=== PATIENT | female | born 1955 | race Two or more races ===

== ENCOUNTER 2021-07-22 16:05 | Emergency (ER) | payer MEDICARE, OTHER ==
[~2021-07-22] VITALS: Ht 152.4 cm; Wt 59.9 kg
--- NOTE | 2021-07-22 16:35 | NUR ---
EL FROM [facility], PER REPORT PATIENT IS REFUSING TO TAKE MEDS, ALSO TESTED COVID POSITIVE YESTERDAY, NO SYMPTOMS. PLACED ON BED, AWAKE ALERT WITH AGRESSIVE BEHAVIOR- SHOUTING AND SCREAMING AT EVERYBODY.
--- NOTE | 2021-07-22 17:10 | NUR ---
MANAGER CATEGORY. AT BED SIDE BUT PATIENT REFUSED BLOOD WORKS
--- NOTE | 2021-07-22 17:54 | NUR ---
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 AT BED SIDE PATIENT AGREES TO HAVE BLOOD WORKS
[2021-07-22] MEDS ORDERED: FLUP5TAB14 PO (18:05)
[2021-07-22] MEDS ORDERED: METO50TA16 PO (18:05)
[2021-07-22] MEDS ORDERED: LEVO137T24 PO (18:05)
[2021-07-22] MEDS ORDERED: CLON0.5T PO (18:05)
[2021-07-22] MEDS ORDERED: TOPI50TA24 PO (18:05)
[2021-07-22] MEDS ORDERED: ARIP5TAB10 PO (18:05)
[2021-07-22] MEDS ORDERED: ATOR40TA PO (18:05)
[2021-07-22] MEDS ORDERED: LATA2.5D15 EACHEYE (18:05)
[2021-07-22] MEDS ORDERED: ASPI-1169 PO (18:05)
[2021-07-22] MEDS ORDERED: DIVA-78 PO (18:05)
[2021-07-22] MEDS ORDERED: LOSA25TA27 PO (18:05)
[2021-07-22] MEDS ORDERED: OLAN10TA3 PO (18:05)
[2021-07-22 18:07] LABS: BASOPHILS % (AUTO) 0.4 % (0.0-2.0); EOSINOPHILS % (AUTO) 2.8 % (0.0-6.0); HEMATOCRIT 36 % (33-45); HEMOGLOBIN 11.7 g/dL (11.5-14.8); LYMPHOCYTES # (AUTO) 1.4 K/uL (0.8-4.8); LYMPHOCYTES % (AUTO) 27.9 % (20.0-44.0); MEAN CORPUSCULAR HGB CONC 33 g/dl (31.0-36.0); MEAN CORPUSCULAR VOLUME 88 fL (82-100); MONOCYTES % (AUTO) 20.5 % (2.0-12.0); NEUTROPHILS # (AUTO) 2.5 K/uL (1.8-8.9); NEUTROPHILS % (AUTO) 48.4 % (43.0-81.0); PLATELET COUNT (AUTO) 257 K/uL (150-450); RED BLOOD CELL COUNT(AUTO) 4.08 MIL/uL (4.0-5.2); WHITE BLOOD COUNT (AUTO) 5.1 K/uL (4.3-11.0)
--- NOTE | 2021-07-22 18:11 | NUR ---
SWAB FOR COVID19 SENT TO LAB
[2021-07-22 18:20] LABS: CARBON DIOXIDE 29 mmol/L (21-32); CHLORIDE 104 mmol/L (98-107); CREATININE 0.8 mg/dL (0.6-1.3); GLUCOSE 83 mg/dL (74-106); SODIUM SERUM 141 mmol/L (136-145); UREA NITROGEN, BLOOD 24 mg/dL (7-18)
[2021-07-22 18:26] LABS: ALANINE AMINOTRANSFERASE 22 U/L (12-78); ALBUMIN 3.2 g/dL (3.4-5.0); ALCOHOL, BLOOD < 3 mg/dL (0-0); ALKALINE PHOSPHATASE 119 U/L (46-116); ASPARTATE AMINOTRANSFERASE 18 U/L (15-37); BILIRUBIN,DIRECT 0.1 mg/dL (0.0-0.2); BILIRUBIN,TOTAL 0.2 mg/dL (0.2-1.0); TOTAL PROTEIN, SERUM 7.3 g/dL (6.4-8.2)
[2021-07-22 18:29] LABS: ACETAMINOPHEN < 2 ug/ml (10-30)
--- NOTE | 2021-07-22 18:49 | NUR ---
URINE SAMPLE SENT TO LAB
[2021-07-22 19:22] LABS: BILIRUBIN,URINE NEGATIVE (NEGATIVE); COLOR,URINE YELLOW (YELLOW); LEUKOCYTE ESTERASE ,URINE SMALL (NEGATIVE); NITRITE, URINE NEGATIVE (NEGATIVE); PROTEIN,URINE NEGATIVE (NEGATIVE); UGLUCOSE NEGATIVE (NEGATIVE); UROBILINOGEN,URINE 0.2 EU/dL (0.2)
[2021-07-22 19:33] LABS: BACTERIA,URINE 1+ /HPF (None Seen); RBC,URINE 0-2 /HPF (0-2)
[2021-07-22 19:41] LABS: EOSINOPHILS % (MANUAL) 5 % (0-4); LYMPHOCYTES % (MANUAL) 30 % (16-48); MONOCYTES % (MANUAL) 10 % (0-11.0); NEUTROPHILS % (MANUAL) 55 (42-76)
[2021-07-22] MEDS ORDERED: CEFTRIAXONE 1GM BAG (ER ONLY) 1 GM/50 ML PIGGYBACK IV ONE (20:00)
--- NOTE | 2021-07-22 20:02 | NUR ---
PT EATING DINNER IN ROOM; NO AGGITATION NOTED AT THIS TIME. SAFETY MEASURES IN PLACE
[2021-07-22] MEDS ORDERED: CEFTRIAXONE 1GM BAG (ER ONLY) 50 ML IV ONE (20:06)
[2021-07-22] MEDS ORDERED: CEPHALEXIN MONOHYDRATE 500 MG CAPSULE PO ONE ×2 (20:14→20:30)
--- NOTE | 2021-07-22 20:16 | NUR ---
PT TOOK KEFLEX PO MEDS FOR UTI; VERBALIZED UNDERSTANDING
--- NOTE | 2021-07-22 20:32 | NUR ---
[facility] CRISIS BUSINESS SERVICES COORDINATOR PAGED FOR EVAL.
[2021-07-22] MEDS ORDERED: NICARDIPINE IN DEXTROSE,ISO-OS 200 ML IV ONE (20:35)
--- NOTE | 2021-07-22 21:01 | NUR ---
[facility] CRISIS TEAM AT PT'S BEDSIDE FOR EVAL
[2021-07-22] MEDS ORDERED: FLUPHENAZINE HCL 10 MG TABLET PO SCH (21:30)
[2021-07-22] MEDS ORDERED: ARIPIPRAZOLE 5 MG TABLET PO ONE (21:30)
[2021-07-22] MEDS ORDERED: DIVALPROEX SODIUM 250 MG TABLET.DR PO ONE ×2 (21:30→21:31)
[2021-07-22] MEDS ORDERED: ARIPIPRAZOLE 2 MG TABLET ONE (21:31)
--- NOTE | 2021-07-22 22:39 | NUR ---
[employer] ETA [id number] SPOKE TO NA
--- NOTE | 2021-07-22 22:47 | NUR ---
REPORT GIVEN TO ALVARO FROM [facility] FOR PT TO BE DC
[2021-07-22] MEDS ORDERED: CEPH500C2 PO (22:49)
[2021-07-23] MEDS ORDERED: FLUPHENAZINE HCL 10 MG TABLET PO SCH
--- NOTE | 2021-07-23 00:34 | NUR ---
Report given to Alex VARGAS EMT for pt to D/C to [facility]
[2021-07-23 00:35] VITALS: BP 115/63
== END 2021-07-23 00:35 ==
LOC: ER 18:30
DX: U07.1 COVID-19 (principal); N39.0 Urinary tract infection, site not specified; R94.31 Abnormal electrocardiogram [ECG] [EKG]; F20.9 Schizophrenia, unspecified; Z79.899 Other long term (current) drug therapy; E78.5 Hyperlipidemia, unspecified; I10 Essential (primary) hypertension
CPT/HCPCS: 36415; 71045; 80048; 80076; 80143; 80307; 80320; 81001; 85007; 85025; 87086; 87426; 93005; 99285; J0696; C9803; G0480

== ENCOUNTER 2024-05-15 10:40 | Inpatient (IN) | payer MEDICARE, OTHER ==
[~2024-05-15] VITALS: Ht 154.9 cm; Wt 64.4 kg
[~2024-05-15 10:40] MED LIST: ARIP5TAB10 PO; ASPI-1169 PO; ATOR40TA PO; CEPH500C2 PO; CLON0.5T PO; DIVA-78 PO; FLUP5TAB14 PO; LATA2.5D15 EACHEYE; LEVO137T24 PO; LOSA25TA27 PO; METO50TA16 PO; OLAN10TA3 PO; TOPI50TA24 PO
[2024-05-15] MEDS ORDERED: ONDANSETRON HCL/PF 4 MG/2 ML VIAL ONE (10:58)
[2024-05-15 11:20] LABS: BASOPHILS % (AUTO) 0.2 % (0.0-2.0); EOSINOPHILS # (AUTO) 0.1 K/uL (0.0-0.7); EOSINOPHILS % (AUTO) 1.5 % (0.0-6.0); HEMATOCRIT 22 % (33-45); HEMOGLOBIN 7.1 g/dL (11.5-14.8); LYMPHOCYTES # (AUTO) 1.5 K/uL (0.8-4.8); LYMPHOCYTES % (AUTO) 15.6 % (20.0-44.0); MEAN CORPUSCULAR HEMOGLOBIN 29 PG (26.0-33.0); MEAN CORPUSCULAR HGB CONC 32 g/dl (31.0-36.0); MEAN CORPUSCULAR VOLUME 91 fL (82-100); MONOCYTES % (AUTO) 10.3 % (2.0-12.0); NEUTROPHILS % (AUTO) 72.4 % (43.0-81.0); PLATELET COUNT (AUTO) 544 K/uL (150-450); RED BLOOD CELL COUNT(AUTO) 2.44 MIL/uL (4.0-5.2); RED CELL DISTRIBUTION WIDTH 16.6 % (11.5-15.0); WHITE BLOOD COUNT (AUTO) 9.7 K/uL (4.3-11.0)
[2024-05-15] MEDS: IV NS 0.9% 1,000 ML BAG IV ONE (11:21)
[2024-05-15] MEDS: ONDANSETRON HCL/PF 4 MG/2 ML VIAL IVP ONE (11:22)
[2024-05-15] MEDS: PANTOPRAZOLE 80 MG in IV NS 0.9% 100 ML IV ONE (11:24)
[2024-05-15 11:32] LABS: CALCIUM, SERUM 9.7 mg/dL (8.5-10.1); CREATININE 0.9 mg/dL (0.6-1.3)
[2024-05-15 11:34] LABS: INR 1.03 (0.91-1.10); PARTIAL THROMBOPLASTIN TIME 22.3 SEC (24.3-34.3); PROTHROMBIN TIME 10.9 SECS (9.2-11.1)
[2024-05-15 11:38] LABS: ALBUMIN 2.3 g/dL (3.4-5.0); BILIRUBIN,DIRECT 0.1 mg/dL (0.0-0.2); BILIRUBIN,TOTAL 0.3 mg/dL (0.2-1.0); TOTAL PROTEIN, SERUM 6.9 g/dL (6.4-8.2)
[2024-05-15] MEDS ORDERED: L. A1TAB10 PO (12:38)
[2024-05-15] MEDS ORDERED: MAGN200T5 PO (12:38)
[2024-05-15] MEDS ORDERED: AMIN30LI66 PO (12:38)
[2024-05-15] MEDS ORDERED: CRAN3875 PO (12:38)
[2024-05-15] MEDS ORDERED: CRAN400C PO (12:38)
[2024-05-15] MEDS ORDERED: ARIP10TA9 PO (12:38)
[2024-05-15] MEDS ORDERED: DICL100G34 TP (12:38)
[2024-05-15] MEDS ORDERED: MELO-105 PO (12:38)
[2024-05-15] MEDS ORDERED: DIVA-76 PO (12:38)
[2024-05-15 16:30] VITALS: BP 95/56; TEMP 97.9; O2SAT 99
[2024-05-15] MEDS ORDERED: MAGNESIUM HYDROXIDE 30 ML UDC PO PRN (16:30)
[2024-05-15] MEDS ORDERED: ONDANSETRON HCL/PF 4 MG/2 ML VIAL IVP PRN (16:30)
[2024-05-15] MEDS ORDERED: Z GUARD REMEDY 4 OZ OINT TP PRN (16:30)
[2024-05-15] MEDS: DIVALPROEX SODIUM 250 MG TABLET.DR PO SCH (18:27)
[2024-05-15] MEDS: IV NS 0.9% 1,000 ML IV PRN (19:01)
[2024-05-15 20:13] VITALS: BP 92/50; TEMP 97.3; O2SAT 99
[2024-05-15] MEDS: PANTOPRAZOLE 40 MG VIAL IV SCH (21:12)
[2024-05-16] VITALS (15 sets, daily range): BP systolic 90–119; BP diastolic 43–67; TEMP 96.8–98; O2SAT 99–100
[2024-05-16] MEDS: MAG HYDROX/AL HYDROX/SIMETH 30 ML UDC PO PRN (02:48)
[2024-05-16 06:42] LABS: BASOPHILS % (AUTO) 0.2 % (0.0-2.0); EOSINOPHILS # (AUTO) 0.1 K/uL (0.0-0.7); EOSINOPHILS % (AUTO) 1.6 % (0.0-6.0); LYMPHOCYTES # (AUTO) 1.6 K/uL (0.8-4.8); LYMPHOCYTES % (AUTO) 32.3 % (20.0-44.0); MEAN CORPUSCULAR HEMOGLOBIN 30 PG (26.0-33.0); MEAN CORPUSCULAR HGB CONC 33 g/dl (31.0-36.0); MEAN CORPUSCULAR VOLUME 91 fL (82-100); MONOCYTES # (AUTO) 0.6 K/uL (0.1-1.30); MONOCYTES % (AUTO) 11.1 % (2.0-12.0); NEUTROPHILS # (AUTO) 2.8 K/uL (1.8-8.9); NEUTROPHILS % (AUTO) 54.8 % (43.0-81.0); PLATELET COUNT (AUTO) 459 K/uL (150-450); RED CELL DISTRIBUTION WIDTH 16.7 % (11.5-15.0); WHITE BLOOD COUNT (AUTO) 5.1 K/uL (4.3-11.0)
[2024-05-16 07:01] LABS: OCCULT BLOOD STOOL NEGATIVE (NEGATIVE)
[2024-05-16 07:04] LABS: CALCIUM, SERUM 8.6 mg/dL (8.5-10.1); CREATININE 0.7 mg/dL (0.6-1.3); PHOSPHORUS 2.7 mg/dL (2.5-4.9); POTASSIUM 4.1 mmol/L (3.5-5.1)
[2024-05-16 07:43] LABS: RED BLOOD CELL COUNT(AUTO) 1.84 MIL/uL (4.0-5.2)
[2024-05-16 07:45] LABS: HEMATOCRIT 17 % (33-45); HEMOGLOBIN 5.5 g/dL (11.5-14.8)
[2024-05-16] MEDS: ARIPIPRAZOLE 5 MG TABLET PO SCH (08:47)
[2024-05-16] MEDS: ACETAMINOPHEN 325 MG TABLET PO PRN (10:04)
[2024-05-16 11:20] LABS: ANISOCYTOSIS 1+; EOSINOPHILS % (MANUAL) 1 % (0-4); HYPOCHROMASIA 1+; LYMPHOCYTES % (MANUAL) 33 % (16-48); MONOCYTES % (MANUAL) 1 % (0-11.0); NEUTROPHILS % (MANUAL) 65 (42-76); PLATELET ESTIMATE INCREASED; STOMATOCYTES 1+
[2024-05-16 16:53] LABS: HEMATOCRIT 23 % (33-45); HEMOGLOBIN 7.5 g/dL (11.5-14.8); MEAN CORPUSCULAR HEMOGLOBIN 28 PG (26.0-33.0); MEAN CORPUSCULAR HGB CONC 32 g/dl (31.0-36.0); MEAN CORPUSCULAR VOLUME 87 fL (82-100); PLATELET COUNT (AUTO) 449 K/uL (150-450); RED BLOOD CELL COUNT(AUTO) 2.69 MIL/uL (4.0-5.2); RED CELL DISTRIBUTION WIDTH 19.7 % (11.5-15.0); WHITE BLOOD COUNT (AUTO) 5.8 K/uL (4.3-11.0)
[2024-05-16 23:35] LABS: HEMATOCRIT 27 % (33-45); HEMOGLOBIN 9.1 g/dL (11.5-14.8); MEAN CORPUSCULAR HEMOGLOBIN 30 PG (26.0-33.0); MEAN CORPUSCULAR HGB CONC 33 g/dl (31.0-36.0); MEAN CORPUSCULAR VOLUME 89 fL (82-100); PLATELET COUNT (AUTO) 453 K/uL (150-450); RED BLOOD CELL COUNT(AUTO) 3.07 MIL/uL (4.0-5.2); RED CELL DISTRIBUTION WIDTH 19.1 % (11.5-15.0); WHITE BLOOD COUNT (AUTO) 6.8 K/uL (4.3-11.0)
[2024-05-17] VITALS (8 sets, daily range): BP systolic 100–125; BP diastolic 51–86; TEMP 97.3–97.5; O2SAT 97–100
[2024-05-17 06:58] LABS: BASOPHILS % (AUTO) 0.3 % (0.0-2.0); EOSINOPHILS # (AUTO) 0.1 K/uL (0.0-0.7); EOSINOPHILS % (AUTO) 1.5 % (0.0-6.0); HEMATOCRIT 27 % (33-45); HEMOGLOBIN 8.8 g/dL (11.5-14.8); LYMPHOCYTES # (AUTO) 2.1 K/uL (0.8-4.8); LYMPHOCYTES % (AUTO) 33.5 % (20.0-44.0); MEAN CORPUSCULAR HEMOGLOBIN 29 PG (26.0-33.0); MEAN CORPUSCULAR HGB CONC 33 g/dl (31.0-36.0); MEAN CORPUSCULAR VOLUME 88 fL (82-100); MONOCYTES # (AUTO) 0.6 K/uL (0.1-1.30); MONOCYTES % (AUTO) 9.5 % (2.0-12.0); NEUTROPHILS # (AUTO) 3.4 K/uL (1.8-8.9); NEUTROPHILS % (AUTO) 55.2 % (43.0-81.0); PLATELET COUNT (AUTO) 467 K/uL (150-450); RED BLOOD CELL COUNT(AUTO) 3.02 MIL/uL (4.0-5.2); WHITE BLOOD COUNT (AUTO) 6.2 K/uL (4.3-11.0)
[2024-05-17 07:21] LABS: CALCIUM, SERUM 8.9 mg/dL (8.5-10.1); CREATININE 0.6 mg/dL (0.6-1.3); POTASSIUM 4.8 mmol/L (3.5-5.1)
[2024-05-17] MEDS: IV D5/ 0.9% NACL 1,000 ML IV PRN (11:32)
[2024-05-17 18:32] LABS: BASOPHILS % (AUTO) 0.3 % (0.0-2.0); EOSINOPHILS # (AUTO) 0.1 K/uL (0.0-0.7); EOSINOPHILS % (AUTO) 1.1 % (0.0-6.0); HEMATOCRIT 25 % (33-45); HEMOGLOBIN 8.4 g/dL (11.5-14.8); LYMPHOCYTES # (AUTO) 1.8 K/uL (0.8-4.8); LYMPHOCYTES % (AUTO) 25.7 % (20.0-44.0); MEAN CORPUSCULAR HEMOGLOBIN 31 PG (26.0-33.0); MEAN CORPUSCULAR HGB CONC 34 g/dl (31.0-36.0); MEAN CORPUSCULAR VOLUME 90 fL (82-100); MONOCYTES # (AUTO) 0.7 K/uL (0.1-1.30); MONOCYTES % (AUTO) 10.4 % (2.0-12.0); NEUTROPHILS # (AUTO) 4.4 K/uL (1.8-8.9); NEUTROPHILS % (AUTO) 62.5 % (43.0-81.0); PLATELET COUNT (AUTO) 531 K/uL (150-450); RED BLOOD CELL COUNT(AUTO) 2.73 MIL/uL (4.0-5.2); RED CELL DISTRIBUTION WIDTH 19.3 % (11.5-15.0)
[2024-05-18 04:00] VITALS: BP 124/60; TEMP 97.9; O2SAT 97
[2024-05-18 08:00] VITALS: BP 113/79; TEMP 97.7; O2SAT 98
[2024-05-18 12:49] LABS: BASOPHILS % (AUTO) 0.1 % (0.0-2.0); EOSINOPHILS % (AUTO) 0.3 % (0.0-6.0); HEMATOCRIT 22 % (33-45); HEMOGLOBIN 7.4 g/dL (11.5-14.8); LYMPHOCYTES % (AUTO) 20.2 % (20.0-44.0); MEAN CORPUSCULAR HEMOGLOBIN 29 PG (26.0-33.0); MEAN CORPUSCULAR HGB CONC 33 g/dl (31.0-36.0); MEAN CORPUSCULAR VOLUME 89 fL (82-100); MONOCYTES % (AUTO) 9.7 % (2.0-12.0); NEUTROPHILS % (AUTO) 69.7 % (43.0-81.0); PLATELET COUNT (AUTO) 576 K/uL (150-450); RED BLOOD CELL COUNT(AUTO) 2.51 MIL/uL (4.0-5.2); RED CELL DISTRIBUTION WIDTH 19.3 % (11.5-15.0); WHITE BLOOD COUNT (AUTO) 10.1 K/uL (4.3-11.0)
[2024-05-18 12:54] LABS: CALCIUM, SERUM 8.8 mg/dL (8.5-10.1); CREATININE 0.9 mg/dL (0.6-1.3); POTASSIUM 3.4 mmol/L (3.5-5.1)
[2024-05-18 13:04] LABS: INR 1.26 (0.91-1.10); PROTHROMBIN TIME 13.2 SECS (9.2-11.1)
[2024-05-18] MEDS ORDERED: ANESTHESIA TRAY IN PYXIS 1 EA TRAY MC ONE (13:36)
[2024-05-18] MEDS ORDERED: EPINEPHRINE (1:10,000) SYRINGE 1 MG/10 ML DISP.SYRIN IVP ONE (15:49)
[2024-05-18 16:00] VITALS: BP 99/52; TEMP 97.9; O2SAT 95
[2024-05-18 16:15] VITALS: BP 119/71; TEMP 98.2
[2024-05-18 18:00] VITALS: BP 121/79; TEMP 97.9
[2024-05-18 20:00] VITALS: BP 122/73; TEMP 98.6; O2SAT 98
[2024-05-19] VITALS: BP 127/59; TEMP 98.6; O2SAT 97
[2024-05-19 04:00] VITALS: BP 116/63; TEMP 98.1; O2SAT 97
[2024-05-19 06:55] LABS: CALCIUM, SERUM 8.4 mg/dL (8.5-10.1); CREATININE 0.7 mg/dL (0.6-1.3)
[2024-05-19 07:13] LABS: BASOPHILS % (AUTO) 0.3 % (0.0-2.0); HEMATOCRIT 26 % (33-45); HEMOGLOBIN 8.6 g/dL (11.5-14.8); LYMPHOCYTES % (AUTO) 20.9 % (20.0-44.0); MEAN CORPUSCULAR HEMOGLOBIN 30 PG (26.0-33.0); MEAN CORPUSCULAR HGB CONC 34 g/dl (31.0-36.0); MEAN CORPUSCULAR VOLUME 88 fL (82-100); MONOCYTES # (AUTO) 1.3 K/uL (0.1-1.30); NEUTROPHILS # (AUTO) 6.1 K/uL (1.8-8.9); NEUTROPHILS % (AUTO) 64.8 % (43.0-81.0); PLATELET COUNT (AUTO) 500 K/uL (150-450); RED CELL DISTRIBUTION WIDTH 17.2 % (11.5-15.0); WHITE BLOOD COUNT (AUTO) 9.5 K/uL (4.3-11.0)
[2024-05-19 08:10] VITALS: BP 133/69; TEMP 98.6; O2SAT 97
[2024-05-19] MEDS: POTASSIUM CHLORIDE 20 MEQ TAB.PRT.SR PO SCH (10:47)
[2024-05-19] MEDS: IV 1/2NS 1000 ML 1,000 ML IV PRN (11:36)
[2024-05-19 16:05] VITALS: BP 129/66; TEMP 98.6; O2SAT 99
[2024-05-19 20:00] VITALS: BP 95/59; TEMP 98.4; O2SAT 99
[2024-05-20 04:00] VITALS: BP 144/74; TEMP 98.6; O2SAT 100
[2024-05-20] MEDS: PANTOPRAZOLE 40 MG TABLET.DR PO SCH (09:45)
[2024-05-20 12:13] VITALS: BP 145/58; TEMP 98.5; O2SAT 99
[2024-05-20 15:18] LABS: BASOPHILS % (AUTO) 0.4 % (0.0-2.0); EOSINOPHILS % (AUTO) 0.3 % (0.0-6.0); HEMATOCRIT 25 % (33-45); HEMOGLOBIN 8.2 g/dL (11.5-14.8); LYMPHOCYTES # (AUTO) 2.4 K/uL (0.8-4.8); LYMPHOCYTES % (AUTO) 20.7 % (20.0-44.0); MEAN CORPUSCULAR HEMOGLOBIN 29 PG (26.0-33.0); MEAN CORPUSCULAR HGB CONC 33 g/dl (31.0-36.0); MEAN CORPUSCULAR VOLUME 89 fL (82-100); MONOCYTES # (AUTO) 1.7 K/uL (0.1-1.30); MONOCYTES % (AUTO) 14.5 % (2.0-12.0); NEUTROPHILS # (AUTO) 7.5 K/uL (1.8-8.9); NEUTROPHILS % (AUTO) 64.1 % (43.0-81.0); PLATELET COUNT (AUTO) 436 K/uL (150-450); RED BLOOD CELL COUNT(AUTO) 2.82 MIL/uL (4.0-5.2); RED CELL DISTRIBUTION WIDTH 18.1 % (11.5-15.0); WHITE BLOOD COUNT (AUTO) 11.7 K/uL (4.3-11.0)
[2024-05-20] MEDS: clonazePAM 0.5 MG TABLET PO PRN (15:24)
[2024-05-20 15:27] LABS: BILIRUBIN,TOTAL 0.3 mg/dL (0.2-1.0); CALCIUM, SERUM 8.4 mg/dL (8.5-10.1); CREATININE 0.7 mg/dL (0.6-1.3); POTASSIUM 3.2 mmol/L (3.5-5.1); TOTAL PROTEIN, SERUM 5.7 g/dL (6.4-8.2)
[2024-05-20 16:59] VITALS: BP 127/71; TEMP 98
[2024-05-20 20:00] VITALS: BP 128/75; TEMP 98.4; O2SAT 95
[2024-05-21 04:00] VITALS: BP 127/71; TEMP 99; O2SAT 98
[2024-05-21 07:02] LABS: BASOPHILS % (AUTO) 0.3 % (0.0-2.0); EOSINOPHILS % (AUTO) 0.6 % (0.0-6.0); HEMATOCRIT 22 % (33-45); HEMOGLOBIN 7.5 g/dL (11.5-14.8); LYMPHOCYTES # (AUTO) 1.7 K/uL (0.8-4.8); LYMPHOCYTES % (AUTO) 23.3 % (20.0-44.0); MEAN CORPUSCULAR HEMOGLOBIN 30 PG (26.0-33.0); MEAN CORPUSCULAR HGB CONC 34 g/dl (31.0-36.0); MEAN CORPUSCULAR VOLUME 88 fL (82-100); MONOCYTES # (AUTO) 1.2 K/uL (0.1-1.30); MONOCYTES % (AUTO) 15.8 % (2.0-12.0); NEUTROPHILS # (AUTO) 4.4 K/uL (1.8-8.9); PLATELET COUNT (AUTO) 427 K/uL (150-450); RED BLOOD CELL COUNT(AUTO) 2.51 MIL/uL (4.0-5.2); RED CELL DISTRIBUTION WIDTH 17.9 % (11.5-15.0); WHITE BLOOD COUNT (AUTO) 7.4 K/uL (4.3-11.0)
[2024-05-21 07:36] LABS: CREATININE 0.6 mg/dL (0.6-1.3); MAGNESIUM 1.6 mg/dL (1.8-2.4); PHOSPHORUS 3.4 mg/dL (2.5-4.9)
[2024-05-21] MEDS ORDERED: PANT40TA49 PO (10:25)
[2024-05-21 10:53] VITALS: BP 140/70; TEMP 98.2; O2SAT 99
[2024-05-21] MEDS: MAGNESIUM OXIDE 400 MG TABLET PO ONE (11:00)
[2024-05-21 11:01] LABS: POTASSIUM 2.7 mmol/L (3.5-5.1)
[2024-05-21 11:39] LABS: LYMPHOCYTES % (MANUAL) 21 % (16-48); MONOCYTES % (MANUAL) 6 % (0-11.0); NEUTROPHILS % (MANUAL) 73 (42-76)
[2024-05-21 11:40] LABS: ANISOCYTOSIS 1+; HYPOCHROMASIA 1+; PLATELET ESTIMATE ADEQUATE
[2024-05-21] MEDS: POTASSIUM CHLORIDE 20 MEQ TAB.PRT.SR PO ONE (13:35)
[2024-05-21] MEDS: POTASSIUM CHLORIDE 20 MEQ TAB.PRT.SR PO SCH (13:36)
[2024-05-21] MEDS ORDERED: POTASSIUM CHLORIDE 20 MEQ TAB.PRT.SR PO ONE (15:00)
[2024-05-21 16:26] VITALS: BP 139/74; TEMP 98.1
[2024-05-21] MEDS ORDERED: POTASSIUM CHLORIDE 20 MEQ TAB.PRT.SR PO SCH (18:00)
== END 2024-05-21 18:52 | DRG 378 ==
LOC: ER 10:48 → TELE1 15:06 → MEDSG1 16:18 → TELE1 05-18 12:18 → MEDSG1 05-19 09:42
PROVIDERS: ADMIT Internal Medicine; ATTEND Internal Medicine
PROC: 30233N1 Transfusion of Nonautologous Red Blood Cells into Peripheral Vein, Percutaneous Approach (ICD-10-PCS; 2024-05-16)
PROC: 0DJ08ZZ Inspection of Upper Intestinal Tract, Via Natural or Artificial Opening Endoscopic (ICD-10-PCS; principal; 2024-05-17 10:00)
PROC: 0W3P8ZZ Control Bleeding in Gastrointestinal Tract, Via Natural or Artificial Opening Endoscopic (ICD-10-PCS; 2024-05-18)
DX: K26.4 Chronic or unspecified duodenal ulcer with hemorrhage (principal); D62 Acute posthemorrhagic anemia; E87.0 Hyperosmolality and hypernatremia; D64.9 Anemia, unspecified; I10 Essential (primary) hypertension; F20.9 Schizophrenia, unspecified; K29.70 Gastritis, unspecified, without bleeding; K29.80 Duodenitis without bleeding; E78.5 Hyperlipidemia, unspecified; Z88.8 Allergy status to other drugs, medicaments and biological substances; Z79.899 Other long term (current) drug therapy; F32.9 Major depressive disorder, single episode, unspecified; Z86.59 Personal history of other mental and behavioral disorders; K80.20 Calculus of gallbladder without cholecystitis without obstruction; N20.0 Calculus of kidney
CPT/HCPCS: 36415; 71045-TC; 80048-TC; 80053-TC; 80076-TC; 82272-TC; 82962-TC; 83735-TC; 84100-TC; 85025-TC; 85027-TC; 85610-TC; 85730-TC; 86850-TC; 97110-TC; 97530-TC; A4223; G0378; J0171; J0461; J2405; J2470; J2704; J3490; J7030; J7042; J7050; P9016

== ENCOUNTER 2024-05-24 04:03 | Inpatient (IN) | payer MEDICARE, OTHER ==
[~2024-05-24] VITALS: Ht 152.4 cm; Wt 59.9 kg
[~2024-05-24 04:03] MED LIST changes: +AMIN30LI66 PO; +ARIP10TA9 PO; -ASPI-1169 PO; -ATOR40TA PO; -CEPH500C2 PO; +CRAN3875 PO; +CRAN400C PO; +DICL100G34 TP; +DIVA-76 PO; -DIVA-78 PO; -FLUP5TAB14 PO; +L. A1TAB10 PO; -LATA2.5D15 EACHEYE; -LEVO137T24 PO; -LOSA25TA27 PO; +MAGN200T5 PO; -METO50TA16 PO; -OLAN10TA3 PO; +PANT40TA49 PO; -TOPI50TA24 PO
[2024-05-24] MEDS ORDERED: POTASSIUM CHLORIDE 10 MEQ/50 ML PREMIXED IVPB FOR PERIPHERAL LINE IV ONE (04:16)
[2024-05-24 04:56] LABS: BASOPHILS % (AUTO) 0.1 % (0.0-2.0); HEMATOCRIT 22 % (33-45); HEMOGLOBIN 7.2 g/dL (11.5-14.8); LYMPHOCYTES # (AUTO) 1.2 K/uL (0.8-4.8); LYMPHOCYTES % (AUTO) 7.9 % (20.0-44.0); MEAN CORPUSCULAR HEMOGLOBIN 28 PG (26.0-33.0); MEAN CORPUSCULAR HGB CONC 33 g/dl (31.0-36.0); MEAN CORPUSCULAR VOLUME 87 fL (82-100); MONOCYTES % (AUTO) 6.3 % (2.0-12.0); NEUTROPHILS # (AUTO) 13.5 K/uL (1.8-8.9); NEUTROPHILS % (AUTO) 85.7 % (43.0-81.0); PLATELET COUNT (AUTO) 422 K/uL (150-450); RED BLOOD CELL COUNT(AUTO) 2.55 MIL/uL (4.0-5.2); WHITE BLOOD COUNT (AUTO) 15.7 K/uL (4.3-11.0)
[2024-05-24 05:10] LABS: ALBUMIN 1.5 g/dL (3.4-5.0); BILIRUBIN,DIRECT 0.1 mg/dL (0.0-0.2); BILIRUBIN,TOTAL 0.4 mg/dL (0.2-1.0); CALCIUM, SERUM 8.2 mg/dL (8.5-10.1); CREATININE 0.6 mg/dL (0.6-1.3); TOTAL PROTEIN, SERUM 5.3 g/dL (6.4-8.2)
[2024-05-24 05:11] LABS: POTASSIUM 2.5 mmol/L (3.5-5.1)
[2024-05-24] MEDS: POTASSIUM CHLORIDE 10 MEQ/50 ML PREMIXED IVPB FOR PERIPHERAL LINE IV ONE (05:30)
[2024-05-24] MEDS ORDERED: POTASSIUM CL. PREMIX PERIPHER. 50 ML ONE ×3 (05:35→08:30)
[2024-05-24 05:53] LABS: APPEARANCE,URINE SLIGHTLY CLOUDY (CLEAR); BILIRUBIN,URINE NEGATIVE (NEGATIVE); BLOOD, URINE 1+ Ery/uL (NEGATIVE); COLOR,URINE YELLOW (YELLOW); KETONES,URINE NEGATIVE (NEGATIVE); LEUKOCYTE ESTERASE ,URINE 3+ (NEGATIVE); NITRITE, URINE POSITIVE (NEGATIVE); PROTEIN,URINE NEGATIVE (NEGATIVE); UGLUCOSE NEGATIVE (NEGATIVE); UROBILINOGEN,URINE 0.2 EU/dL (0.2)
[2024-05-24] MEDS: CEFTRIAXONE 1GM BAG (ER ONLY) 50 ML IV ONE (06:35)
[2024-05-24] MEDS ORDERED: CEFTRIAXONE 1GM BAG (ER ONLY) 50 ML IV ONE (06:35)
[2024-05-24] MEDS ORDERED: ZINC454O5 TP (07:55)
[2024-05-24] MEDS ORDERED: MAGN400O6 PO (07:55)
[2024-05-24] MEDS ORDERED: MELO-105 PO (07:55)
[2024-05-24] MEDS ORDERED: PANT40TA2 PO (07:55)
[2024-05-24] MEDS ORDERED: NA P133E RC (07:55)
[2024-05-24] MEDS ORDERED: ACET-868 PO (07:55)
[2024-05-24] MEDS ORDERED: MAG-5 PO (07:55)
[2024-05-24] MEDS ORDERED: BISA10SU11 RC (07:55)
[2024-05-24 08:05] LABS: ADD URINE CULTURE YES; BACTERIA,URINE Many /HPF (None Seen); WBC,URINE 21-50 /HPF (0-3)
[2024-05-24 08:38] LABS: INR 1.76 (0.91-1.10); PARTIAL THROMBOPLASTIN TIME 44.7 SEC (24.3-34.3)
[2024-05-24] MEDS: POTASSIUM CL. PREMIX PERIPHER. 50 ML IV SCH (09:53)
[2024-05-24 11:00] VITALS: BP 115/63; TEMP 97.9; O2SAT 97
[2024-05-24] MEDS: ENOXAPARIN SODIUM 40 MG/0.4 ML DISP.SYRIN SQ SCH (12:00)
[2024-05-24] MEDS ORDERED: MAG HYDROX/AL HYDROX/SIMETH 30 ML UDC PO PRN ×2 (12:00→16:00)
[2024-05-24] MEDS ORDERED: MAGNESIUM HYDROXIDE 30 ML UDC PO PRN ×2 (12:00→16:00)
[2024-05-24] MEDS: IV 1/2NS 1000 ML 1,000 ML IV PRN (14:25)
[2024-05-24 16:00] VITALS: BP 146/79; TEMP 98.1; O2SAT 98
[2024-05-24] MEDS ORDERED: BISACODYL SUPP (10 MG) 10 MG/SUPP.RECT SUPP.RECT RC PRN (16:00)
[2024-05-24] MEDS ORDERED: ACETAMINOPHEN 325 MG TABLET PO PRN (16:00)
[2024-05-24] MEDS: PANTOPRAZOLE 40 MG TABLET.DR PO SCH (17:37)
[2024-05-24] MEDS: DIVALPROEX SODIUM 250 MG TABLET.DR PO SCH (17:37)
[2024-05-24] MEDS: ENSURE ENLIVE 237 ML LIQUID (VANILLA) PO SCH (18:14)
[2024-05-24 20:00] VITALS: BP 110/55; TEMP 98.2; O2SAT 96
[2024-05-24] MEDS: ARIPIPRAZOLE 5 MG TABLET PO SCH (21:34)
[2024-05-25] VITALS: BP 115/66; TEMP 98.6; O2SAT 95
[2024-05-25 04:00] VITALS: BP 122/65; TEMP 98.6; O2SAT 95
[2024-05-25] MEDS: CEFTRIAXONE 1 G in IV D5W 50 ML IV SCH (05:52)
[2024-05-25 07:26] VITALS: BP 122/65; TEMP 98.6; O2SAT 95
[2024-05-25] MEDS ORDERED: PANTOPRAZOLE 40 MG TABLET.DR PO SCH (07:30)
[2024-05-25] MEDS ORDERED: Medication Not On Formulary EA (Cranberry 450 MG) PO SCH (09:00)
[2024-05-25] MEDS: PROSOURCE / PROSTAT (PYXIS) 30 ML UDC PO SCH (09:10)
[2024-05-25] MEDS: ARIPIPRAZOLE 5 MG TABLET PO SCH (09:17)
[2024-05-25] MEDS: ZINC OXIDE 56.7 GM TUBE TP SCH (09:18)
[2024-05-25] MEDS: ACIDOPHILUS/BULGARICUS 1 EACH TAB.CHEW PO SCH (09:18)
[2024-05-25] MEDS: Z GUARD REMEDY 4 OZ OINT TP PRN (09:18)
[2024-05-25] MEDS: ONDANSETRON HCL/PF 4 MG/2 ML VIAL IVP PRN (09:19)
[2024-05-25] MEDS: FIXODENT DENTURE ADHESIVE CREAM TUBE MM PRN (13:45)
[2024-05-25] MEDS: clonazePAM 0.5 MG TABLET PO PRN (14:19)
[2024-05-25 16:00] VITALS: BP 107/54; TEMP 98.1; O2SAT 94
[2024-05-25 20:00] VITALS: BP 113/75; TEMP 97.8; O2SAT 95
[2024-05-25] MEDS: ZOLPIDEM TARTRATE 5 MG TABLET PO PRN (21:38)
[2024-05-26] MEDS: ACETAMINOPHEN 325 MG TABLET PO PRN (02:21)
[2024-05-26 11:33] LABS: BASOPHILS % (AUTO) 0.1 % (0.0-2.0); EOSINOPHILS % (AUTO) 0.3 % (0.0-6.0); HEMATOCRIT 22 % (33-45); HEMOGLOBIN 7.1 g/dL (11.5-14.8); LYMPHOCYTES # (AUTO) 1.8 K/uL (0.8-4.8); LYMPHOCYTES % (AUTO) 13.8 % (20.0-44.0); MEAN CORPUSCULAR HEMOGLOBIN 29 PG (26.0-33.0); MEAN CORPUSCULAR HGB CONC 33 g/dl (31.0-36.0); MEAN CORPUSCULAR VOLUME 88 fL (82-100); MONOCYTES # (AUTO) 1.2 K/uL (0.1-1.30); MONOCYTES % (AUTO) 9.4 % (2.0-12.0); NEUTROPHILS # (AUTO) 9.7 K/uL (1.8-8.9); NEUTROPHILS % (AUTO) 76.4 % (43.0-81.0); PLATELET COUNT (AUTO) 507 K/uL (150-450); RED BLOOD CELL COUNT(AUTO) 2.46 MIL/uL (4.0-5.2); RED CELL DISTRIBUTION WIDTH 18.3 % (11.5-15.0); WHITE BLOOD COUNT (AUTO) 12.7 K/uL (4.3-11.0)
[2024-05-26 11:52] LABS: CALCIUM, SERUM 8.4 mg/dL (8.5-10.1); CREATININE 0.7 mg/dL (0.6-1.3); PHOSPHORUS 1.3 mg/dL (2.5-4.9); POTASSIUM 3.4 mmol/L (3.5-5.1)
[2024-05-26] MEDS: POTASSIUM CHLORIDE 20 MEQ TAB.PRT.SR PO SCH (14:15)
[2024-05-26 20:00] VITALS: BP 139/66; TEMP 98.2; O2SAT 95
[2024-05-27] VITALS (7 sets, daily range): BP systolic 118–145; BP diastolic 70–93; TEMP 97.7–98.6; O2SAT 96–98
[2024-05-27 07:11] LABS: CREATININE 0.6 mg/dL (0.6-1.3); PHOSPHORUS 1.9 mg/dL (2.5-4.9); POTASSIUM 3.7 mmol/L (3.5-5.1)
[2024-05-27 07:14] LABS: BASOPHILS % (AUTO) 0.1 % (0.0-2.0); EOSINOPHILS # (AUTO) 0.1 K/uL (0.0-0.7); EOSINOPHILS % (AUTO) 0.3 % (0.0-6.0); HEMATOCRIT 22 % (33-45); LYMPHOCYTES # (AUTO) 2.3 K/uL (0.8-4.8); LYMPHOCYTES % (AUTO) 12.7 % (20.0-44.0); MEAN CORPUSCULAR HEMOGLOBIN 28 PG (26.0-33.0); MEAN CORPUSCULAR HGB CONC 32 g/dl (31.0-36.0); MEAN CORPUSCULAR VOLUME 88 fL (82-100); MONOCYTES # (AUTO) 2.1 K/uL (0.1-1.30); MONOCYTES % (AUTO) 11.7 % (2.0-12.0); NEUTROPHILS # (AUTO) 13.3 K/uL (1.8-8.9); NEUTROPHILS % (AUTO) 75.2 % (43.0-81.0); PLATELET COUNT (AUTO) 546 K/uL (150-450); RED BLOOD CELL COUNT(AUTO) 2.51 MIL/uL (4.0-5.2); RED CELL DISTRIBUTION WIDTH 17.9 % (11.5-15.0); WHITE BLOOD COUNT (AUTO) 17.7 K/uL (4.3-11.0)
[2024-05-27 10:50] LABS: ANISOCYTOSIS 1+; LYMPHOCYTES % (MANUAL) 10 % (16-48); MONOCYTES % (MANUAL) 6 % (0-11.0); NEUTROPHILS % (MANUAL) 84 (42-76); PLATELET ESTIMATE INCREASED
[2024-05-27] MEDS: K PHOS NEUTRAL 250 MG TABLET PO ONE (16:26)
[2024-05-28] VITALS (14 sets, daily range): BP systolic 116–155; BP diastolic 70–91; TEMP 97.3–98.8; O2SAT 96–97
[2024-05-28 07:35] LABS: CREATININE 0.6 mg/dL (0.6-1.3); POTASSIUM 3.8 mmol/L (3.5-5.1)
[2024-05-28 07:42] LABS: MAGNESIUM 2.1 mg/dL (1.8-2.4); PHOSPHORUS 2.3 mg/dL (2.5-4.9)
[2024-05-28 08:22] LABS: BASOPHILS % (AUTO) 0.2 % (0.0-2.0); EOSINOPHILS # (AUTO) 0.1 K/uL (0.0-0.7); EOSINOPHILS % (AUTO) 0.5 % (0.0-6.0); HEMATOCRIT 21 % (33-45); LYMPHOCYTES # (AUTO) 2.1 K/uL (0.8-4.8); LYMPHOCYTES % (AUTO) 12.8 % (20.0-44.0); MEAN CORPUSCULAR HEMOGLOBIN 30 PG (26.0-33.0); MEAN CORPUSCULAR HGB CONC 33 g/dl (31.0-36.0); MEAN CORPUSCULAR VOLUME 89 fL (82-100); MONOCYTES # (AUTO) 2.3 K/uL (0.1-1.30); MONOCYTES % (AUTO) 14.1 % (2.0-12.0); NEUTROPHILS # (AUTO) 11.6 K/uL (1.8-8.9); NEUTROPHILS % (AUTO) 72.4 % (43.0-81.0); PLATELET COUNT (AUTO) 573 K/uL (150-450); RED BLOOD CELL COUNT(AUTO) 2.35 MIL/uL (4.0-5.2); WHITE BLOOD COUNT (AUTO) 16.1 K/uL (4.3-11.0)
[2024-05-28] MEDS ORDERED: METRONIDAZOLE 500MG/ NS 100ML 500 MG in PREMIX 1 EA IV SCH (08:30)
[2024-05-28 08:51] LABS: HEMOGLOBIN 6.9 g/dL (11.5-14.8)
[2024-05-28 10:22] LABS: IRON, SERUM 10 ug/dl (50-175); TOTAL IRON BINDING CAPACITY 186 ug/dl (250-450)
[2024-05-28 10:34] LABS: FERRITIN 182 ng/mL (8-388)
[2024-05-28 10:46] LABS: LYMPHOCYTES % (MANUAL) 13 % (16-48); MONOCYTES % (MANUAL) 4 % (0-11.0); NEUTROPHILS % (MANUAL) 83 (42-76)
[2024-05-28 10:47] LABS: PLATELET ESTIMATE INCREASED
[2024-05-28 10:51] LABS: ANISOCYTOSIS 1+
[2024-05-28] MEDS: PIPERACILLIN /TAZOBACTAM 3.375 G in IV D5W 50 ML IV SCH (11:09)
[2024-05-28] MEDS: K PHOS NEUTRAL 250 MG TABLET PO ONE (16:01)
[2024-05-29 00:34] VITALS: BP 156/85; TEMP 97.7; O2SAT 97
[2024-05-29 04:11] VITALS: BP 152/85; TEMP 97.5; O2SAT 96
[2024-05-29 07:19] LABS: ALBUMIN 1.6 g/dL (3.4-5.0); BILIRUBIN,TOTAL 0.3 mg/dL (0.2-1.0); CREATININE 0.6 mg/dL (0.6-1.3); MAGNESIUM 2.3 mg/dL (1.8-2.4); POTASSIUM 3.9 mmol/L (3.5-5.1); TOTAL PROTEIN, SERUM 6.3 g/dL (6.4-8.2)
[2024-05-29 08:00] VITALS: BP 155/96; TEMP 98.2; O2SAT 98
[2024-05-29 08:00] LABS: BASOPHILS % (AUTO) 0.4 % (0.0-2.0); EOSINOPHILS # (AUTO) 0.1 K/uL (0.0-0.7); EOSINOPHILS % (AUTO) 0.6 % (0.0-6.0); HEMATOCRIT 28 % (33-45); HEMOGLOBIN 9.3 g/dL (11.5-14.8); LYMPHOCYTES # (AUTO) 1.9 K/uL (0.8-4.8); LYMPHOCYTES % (AUTO) 19.9 % (20.0-44.0); MEAN CORPUSCULAR HEMOGLOBIN 29 PG (26.0-33.0); MEAN CORPUSCULAR HGB CONC 33 g/dl (31.0-36.0); MEAN CORPUSCULAR VOLUME 88 fL (82-100); MONOCYTES # (AUTO) 1.2 K/uL (0.1-1.30); MONOCYTES % (AUTO) 12.8 % (2.0-12.0); NEUTROPHILS # (AUTO) 6.2 K/uL (1.8-8.9); NEUTROPHILS % (AUTO) 66.3 % (43.0-81.0); PLATELET COUNT (AUTO) 660 K/uL (150-450); RED BLOOD CELL COUNT(AUTO) 3.22 MIL/uL (4.0-5.2); RED CELL DISTRIBUTION WIDTH 18.1 % (11.5-15.0); WHITE BLOOD COUNT (AUTO) 9.4 K/uL (4.3-11.0)
[2024-05-29 10:24] LABS: INR 1.03 (0.91-1.10); PROTHROMBIN TIME 10.9 SECS (9.2-11.1)
[2024-05-29] MEDS: IV D5/0.45 NACL 1,000 ML IV PRN (11:29)
[2024-05-29 12:00] VITALS: BP 164/84; TEMP 98.8; O2SAT 96
[2024-05-29 16:00] VITALS: BP 138/76; TEMP 98; O2SAT 97
[2024-05-29 20:00] VITALS: BP 137/76; TEMP 98.1; O2SAT 96
[2024-05-29] MEDS ORDERED: LIDOCAINE HCL/PF 1% 30 ML SDV ONE (20:33)
[2024-05-30] VITALS: BP 151/80; TEMP 97.8; O2SAT 98
[2024-05-30 04:00] VITALS: BP 152/77; TEMP 97.7; O2SAT 99
[2024-05-30 04:02] VITALS: BP 152/77; TEMP 97.7; O2SAT 97
[2024-05-30 06:36] LABS: BASOPHILS % (AUTO) 0.5 % (0.0-2.0); EOSINOPHILS % (AUTO) 0.5 % (0.0-6.0); HEMATOCRIT 27 % (33-45); HEMOGLOBIN 8.7 g/dL (11.5-14.8); LYMPHOCYTES # (AUTO) 2.1 K/uL (0.8-4.8); LYMPHOCYTES % (AUTO) 26.5 % (20.0-44.0); MEAN CORPUSCULAR HEMOGLOBIN 29 PG (26.0-33.0); MEAN CORPUSCULAR HGB CONC 32 g/dl (31.0-36.0); MEAN CORPUSCULAR VOLUME 88 fL (82-100); MONOCYTES % (AUTO) 12.6 % (2.0-12.0); NEUTROPHILS # (AUTO) 4.7 K/uL (1.8-8.9); NEUTROPHILS % (AUTO) 59.9 % (43.0-81.0); PLATELET COUNT (AUTO) 656 K/uL (150-450); RED BLOOD CELL COUNT(AUTO) 3.05 MIL/uL (4.0-5.2); RED CELL DISTRIBUTION WIDTH 17.9 % (11.5-15.0); WHITE BLOOD COUNT (AUTO) 7.9 K/uL (4.3-11.0)
[2024-05-30 06:52] LABS: CALCIUM, SERUM 8.6 mg/dL (8.5-10.1); CREATININE 0.6 mg/dL (0.6-1.3); POTASSIUM 3.1 mmol/L (3.5-5.1)
[2024-05-30 08:00] VITALS: BP 163/88; TEMP 97.9; O2SAT 95
[2024-05-30 10:06] LABS: EOSINOPHILS % (MANUAL) 1 % (0-4); LYMPHOCYTES % (MANUAL) 29 % (16-48); MONOCYTES % (MANUAL) 12 % (0-11.0); NEUTROPHILS % (MANUAL) 58 (42-76); PLATELET ESTIMATE INCREASED
[2024-05-30 10:07] LABS: ANISOCYTOSIS 1+
[2024-05-30] MEDS: POTASSIUM CHLORIDE 20 MEQ POWDER PACKET PO ONE (10:15)
[2024-05-30] MEDS: IV D5W 1,000 ML IV ONE (14:30)
[2024-05-30 14:50] VITALS: BP 140/74; O2SAT 97
== END 2024-05-30 15:41 | DRG 444 ==
LOC: ER 04:15 → TELE 10:32 → MED 05-30 13:09
PROVIDERS: ADMIT Student in an Organized Health Care Education/Training Program; ATTEND Nurse Practitioner Acute Care
PROC: 30233N1 Transfusion of Nonautologous Red Blood Cells into Peripheral Vein, Percutaneous Approach (ICD-10-PCS; 2024-05-28)
PROC: 0F9430Z Drainage of Gallbladder with Drainage Device, Percutaneous Approach (ICD-10-PCS; principal; 2024-05-29)
DX: K81.0 Acute cholecystitis (principal); K63.1 Perforation of intestine (nontraumatic); N39.0 Urinary tract infection, site not specified; E87.0 Hyperosmolality and hypernatremia; J98.11 Atelectasis; D62 Acute posthemorrhagic anemia; E44.0 Moderate protein-calorie malnutrition; K29.80 Duodenitis without bleeding; E87.6 Hypokalemia; D75.839 Thrombocytosis, unspecified; K29.70 Gastritis, unspecified, without bleeding; E78.5 Hyperlipidemia, unspecified; F20.9 Schizophrenia, unspecified; Z88.8 Allergy status to other drugs, medicaments and biological substances; Z79.899 Other long term (current) drug therapy; R54 Age-related physical debility; Z74.01 Bed confinement status; B96.89 Other specified bacterial agents as the cause of diseases classified elsewhere; Z87.19 Personal history of other diseases of the digestive system; F29 Unspecified psychosis not due to a substance or known physiological condition; F32.9 Major depressive disorder, single episode, unspecified; E83.39 Other disorders of phosphorus metabolism; E88.09 Other disorders of plasma-protein metabolism, not elsewhere classified; I10 Essential (primary) hypertension; N20.0 Calculus of kidney; Z87.891 Personal history of nicotine dependence; B96.20 Unspecified Escherichia coli [E. coli] as the cause of diseases classified elsewhere; B95.2 Enterococcus as the cause of diseases classified elsewhere; K52.9 Noninfective gastroenteritis and colitis, unspecified; N63.10 Unspecified lump in the right breast, unspecified quadrant
CPT/HCPCS: 36415; 71045-TC; 75989; 80048-TC; 80053-TC; 80076-TC; 81001; 82728-TC; 83540-TC; 83605-TC; 83735-TC; 84100-TC; 85025-TC; 85610-TC; 85730-TC; 86850-TC; 87040-TC; 87081-TC; 87086-TC; 87186-TC; 93307-TC; 97110-TC; 97112-TC; 97530-TC; A4216; A4223; G0378; J0696; J2405; J2543; J3480; J3490; J7040; J7050; J7060; J7070; P9016

== ENCOUNTER 2024-07-02 15:49 | Inpatient (IN) | payer MEDICARE, OTHER ==
[~2024-07-02] VITALS: Ht 162.6 cm; Wt 62.1 kg
[~2024-07-02 15:49] MED LIST changes: +ACET-868 PO; +BISA10SU11 RC; -CRAN3875 PO; +MAG-5 PO; +MAGN400O6 PO; +MELO-105 PO; +NA P133E RC; +PANT40TA2 PO; -PANT40TA49 PO; +ZINC454O5 TP
[2024-07-02 16:40] LABS: BASOPHILS % (AUTO) 0.1 % (0.0-2.0); EOSINOPHILS % (AUTO) 0.1 % (0.0-6.0); HEMATOCRIT 40 % (33-45); HEMOGLOBIN 12.6 g/dL (11.5-14.8); LYMPHOCYTES # (AUTO) 0.6 K/uL (0.8-4.8); LYMPHOCYTES % (AUTO) 7.4 % (20.0-44.0); MEAN CORPUSCULAR HEMOGLOBIN 29 PG (26.0-33.0); MEAN CORPUSCULAR HGB CONC 32 g/dl (31.0-36.0); MEAN CORPUSCULAR VOLUME 90 fL (82-100); MONOCYTES # (AUTO) 0.1 K/uL (0.1-1.30); MONOCYTES % (AUTO) 1.1 % (2.0-12.0); NEUTROPHILS % (AUTO) 91.3 % (43.0-81.0); PLATELET COUNT (AUTO) 451 K/uL (150-450); RED BLOOD CELL COUNT(AUTO) 4.44 MIL/uL (4.0-5.2); RED CELL DISTRIBUTION WIDTH 19.7 % (11.5-15.0); WHITE BLOOD COUNT (AUTO) 7.7 K/uL (4.3-11.0)
[2024-07-02] MEDS: MORPHINE SULFATE INJ 2 MG/ML DISP.SYRIN IV ONE ×2 (16:40→18:18)
[2024-07-02] MEDS ORDERED: ONDANSETRON HCL/PF 4 MG/2 ML VIAL ONE (16:40)
[2024-07-02] MEDS ORDERED: MORPHINE SULFATE INJ 4 MG/ML DISP.SYRIN ONE ×2 (16:40→18:16)
[2024-07-02] MEDS: ONDANSETRON HCL/PF 4 MG/2 ML VIAL IVP ONE (16:44)
[2024-07-02 16:49] LABS: CALCIUM, SERUM 9.3 mg/dL (8.5-10.1); CARBON DIOXIDE 26 mmol/L (21-32); CHLORIDE 102 mmol/L (98-107); CREATININE 0.9 mg/dL (0.6-1.3); GLUCOSE 135 mg/dL (74-106); SODIUM SERUM 135 mmol/L (136-145); UREA NITROGEN, BLOOD 15 mg/dL (7-18)
[2024-07-02 16:50] LABS: POTASSIUM 5.4 mmol/L (3.5-5.1)
[2024-07-02 16:52] LABS: PARTIAL THROMBOPLASTIN TIME 21.7 SEC (24.3-34.3)
[2024-07-02 16:53] LABS: PROTHROMBIN TIME 10.3 SECS (9.2-11.1)
[2024-07-02] MEDS ORDERED: IV NS 0.9% 250 ML IV ONE (16:56)
[2024-07-02] MEDS ORDERED: IOHEXOL-300 100 ML VIAL IV ONE (16:56)
[2024-07-02 16:59] LABS: LACTIC ACID 3.9 mmol/L (0.4-2.0)
[2024-07-02 17:03] LABS: ALANINE AMINOTRANSFERASE 214 U/L (12-78); ALBUMIN 2.2 g/dL (3.4-5.0); ASPARTATE AMINOTRANSFERASE 811 U/L (15-37); LIPASE 97 U/L (16-77); TOTAL PROTEIN, SERUM 7.4 g/dL (6.4-8.2)
[2024-07-02 17:04] LABS: BILIRUBIN,DIRECT 0.4 mg/dL (0.0-0.2)
[2024-07-02 17:36] LABS: ALKALINE PHOSPHATASE 1398 U/L (46-116)
[2024-07-02] MEDS ORDERED: PIPERACI/TAZO 3.375GM/D5W 50ML PB IV ONE (17:59)
[2024-07-02] MEDS: IV NS 0.9% 1,000 ML BAG IV ONE ×2 (18:00)
[2024-07-02] MEDS: PIPERACILLIN /TAZOBACTAM 3.375 G in IV D5W 50 ML IV ONE (18:00)
[2024-07-02] MEDS ORDERED: MAGN400T52 PO (19:11)
[2024-07-02] MEDS ORDERED: HYDR-4303 PO (19:11)
[2024-07-02] MEDS ORDERED: MULT-213 PO (19:12)
[2024-07-02] MEDS ORDERED: ARGI1POW13 PO (19:12)
[2024-07-02] MEDS ORDERED: MAG HYDROX/AL HYDROX/SIMETH 30 ML UDC PO PRN (21:30)
[2024-07-02] MEDS ORDERED: ZOLPIDEM TARTRATE 5 MG TABLET PO PRN (21:30)
[2024-07-02] MEDS ORDERED: ACETAMINOPHEN 325 MG TABLET PO PRN (21:30)
[2024-07-02] MEDS ORDERED: MAGNESIUM HYDROXIDE 30 ML UDC PO PRN (21:30)
[2024-07-02] MEDS ORDERED: ONDANSETRON HCL/PF 4 MG/2 ML VIAL IVP PRN (21:30)
[2024-07-02] MEDS ORDERED: ENOXAPARIN SODIUM 40 MG/0.4 ML DISP.SYRIN SQ SCH (21:30)
[2024-07-02] MEDS ORDERED: Z GUARD REMEDY 4 OZ OINT TP PRN (21:30)
[2024-07-02] MEDS ORDERED: NOREPINEPHRINE 8MG/250ML RTU 250 ML IV ONE (22:06)
[2024-07-02] MEDS: NOREPINEPHRINE 8 MG in IV NS 0.9% 250 ML IV ONE (22:28)
[2024-07-02] MEDS ORDERED: PIPERACILLIN /TAZOBACTAM 3.375 G in IV D5W 50 ML IV SCH (22:30)
[2024-07-02] MEDS: IV NS 0.9% 1,000 ML IV PRN (22:57)
[2024-07-03] MEDS: PIPERACILLIN /TAZOBACTAM 3.375 G in IV D5W 50 ML IV SCH (06:30)
[2024-07-03] MEDS ORDERED: PIPERACI/TAZO 3.375GM/D5W 50ML PB IV ONE (06:46)
[2024-07-03 07:09] LABS: BASOPHILS % (AUTO) 0.1 % (0.0-2.0); HEMATOCRIT 37 % (33-45); HEMOGLOBIN 11.5 g/dL (11.5-14.8); LYMPHOCYTES # (AUTO) 0.5 K/uL (0.8-4.8); LYMPHOCYTES % (AUTO) 1.9 % (20.0-44.0); MEAN CORPUSCULAR HEMOGLOBIN 28 PG (26.0-33.0); MEAN CORPUSCULAR HGB CONC 32 g/dl (31.0-36.0); MEAN CORPUSCULAR VOLUME 89 fL (82-100); MONOCYTES # (AUTO) 1.4 K/uL (0.1-1.30); NEUTROPHILS # (AUTO) 25.5 K/uL (1.8-8.9); PLATELET COUNT (AUTO) 441 K/uL (150-450); RED CELL DISTRIBUTION WIDTH 19.5 % (11.5-15.0); WHITE BLOOD COUNT (AUTO) 27.4 K/uL (4.3-11.0)
[2024-07-03 07:21] LABS: ALBUMIN 2.1 g/dL (3.4-5.0); BILIRUBIN,DIRECT 1.7 mg/dL (0.0-0.2); BILIRUBIN,TOTAL 1.9 mg/dL (0.2-1.0); CALCIUM, SERUM 9.1 mg/dL (8.5-10.1); CREATININE 0.8 mg/dL (0.6-1.3); MAGNESIUM 1.7 mg/dL (1.8-2.4); POTASSIUM 3.9 mmol/L (3.5-5.1); TOTAL PROTEIN, SERUM 6.8 g/dL (6.4-8.2)
[2024-07-03] MEDS ORDERED: NOREPINEPHRINE 8MG/250ML RTU 250 ML IV ONE (07:38)
[2024-07-03] MEDS: PANTOPRAZOLE 40 MG VIAL IV SCH (12:31)
[2024-07-03] MEDS: PIPERACILLIN /TAZOBACTAM 3.375 G in IV D5W 100 ML IV SCH (12:54)
[2024-07-03] MEDS: Magnesium 1GM/D5W 100ML PREMIX 100 ML IV SCH (13:00)
[2024-07-03 14:15] VITALS: BP 103/66; TEMP 98.6; O2SAT 100
[2024-07-03 16:42] VITALS: BP 105/60; TEMP 98.6; O2SAT 94
[2024-07-03 20:00] VITALS: BP 102/62; TEMP 97.9; O2SAT 98
[2024-07-04] VITALS: BP 110/62; TEMP 97.5; O2SAT 98
[2024-07-04 04:00] VITALS: BP 131/65; TEMP 97.5; O2SAT 98
[2024-07-04 06:23] LABS: BASOPHILS % (AUTO) 0.1 % (0.0-2.0); EOSINOPHILS # (AUTO) 0.1 K/uL (0.0-0.7); EOSINOPHILS % (AUTO) 0.7 % (0.0-6.0); HEMATOCRIT 32 % (33-45); HEMOGLOBIN 10.4 g/dL (11.5-14.8); LYMPHOCYTES # (AUTO) 0.7 K/uL (0.8-4.8); LYMPHOCYTES % (AUTO) 9.3 % (20.0-44.0); MEAN CORPUSCULAR HEMOGLOBIN 29 PG (26.0-33.0); MEAN CORPUSCULAR HGB CONC 33 g/dl (31.0-36.0); MEAN CORPUSCULAR VOLUME 89 fL (82-100); MONOCYTES # (AUTO) 0.5 K/uL (0.1-1.30); MONOCYTES % (AUTO) 5.9 % (2.0-12.0); NEUTROPHILS # (AUTO) 6.6 K/uL (1.8-8.9); PLATELET COUNT (AUTO) 250 K/uL (150-450); RED BLOOD CELL COUNT(AUTO) 3.62 MIL/uL (4.0-5.2); RED CELL DISTRIBUTION WIDTH 19.4 % (11.5-15.0); WHITE BLOOD COUNT (AUTO) 7.8 K/uL (4.3-11.0)
[2024-07-04 06:57] LABS: CALCIUM, SERUM 8.7 mg/dL (8.5-10.1); CREATININE 0.8 mg/dL (0.6-1.3); MAGNESIUM 2.1 mg/dL (1.8-2.4); PHOSPHORUS 3.2 mg/dL (2.5-4.9); POTASSIUM 4.4 mmol/L (3.5-5.1)
[2024-07-04 07:11] LABS: APPEARANCE,URINE CLEAR (CLEAR); BILIRUBIN,URINE NEGATIVE (NEGATIVE); BLOOD, URINE NEGATIVE Ery/uL (NEGATIVE); COLOR,URINE YELLOW (YELLOW); KETONES,URINE NEGATIVE (NEGATIVE); LEUKOCYTE ESTERASE ,URINE 1+ (NEGATIVE); NITRITE, URINE NEGATIVE (NEGATIVE); PROTEIN,URINE NEGATIVE (NEGATIVE); UGLUCOSE NEGATIVE (NEGATIVE); UROBILINOGEN,URINE 0.2 EU/dL (0.2)
[2024-07-04 07:49] LABS: RBC,URINE 0-2 /HPF (0-2)
[2024-07-04 07:50] LABS: ADD URINE CULTURE YES; WBC,URINE 0-2 /HPF (0-3)
[2024-07-04 07:51] LABS: BACTERIA,URINE Rare /HPF (None Seen)
[2024-07-04] MEDS: CLOTRIMAZOLE/BETAMETASONE DIPROPIONATE 15 GM TUBE TP SCH (08:59)
[2024-07-04 10:47] VITALS: BP 133/72; TEMP 97.3; O2SAT 98
[2024-07-04 14:00] VITALS: BP 148/87; TEMP 97.7; O2SAT 98
[2024-07-04 16:00] VITALS: BP 140/63; TEMP 97.5; O2SAT 98
[2024-07-04 20:00] VITALS: BP 130/97; TEMP 97.5; TEMP 97.6; O2SAT 99
[2024-07-05] VITALS: BP 146/90; TEMP 97.5; TEMP 97.6; O2SAT 99
[2024-07-05 04:00] VITALS: BP 148/93; TEMP 97.7; O2SAT 100
[2024-07-05 06:32] LABS: BASOPHILS % (AUTO) 0.4 % (0.0-2.0); EOSINOPHILS # (AUTO) 0.1 K/uL (0.0-0.7); EOSINOPHILS % (AUTO) 0.9 % (0.0-6.0); HEMATOCRIT 34 % (33-45); HEMOGLOBIN 10.8 g/dL (11.5-14.8); LYMPHOCYTES # (AUTO) 1.1 K/uL (0.8-4.8); LYMPHOCYTES % (AUTO) 16.5 % (20.0-44.0); MEAN CORPUSCULAR HEMOGLOBIN 28 PG (26.0-33.0); MEAN CORPUSCULAR HGB CONC 32 g/dl (31.0-36.0); MEAN CORPUSCULAR VOLUME 89 fL (82-100); MONOCYTES # (AUTO) 0.4 K/uL (0.1-1.30); MONOCYTES % (AUTO) 6.4 % (2.0-12.0); NEUTROPHILS # (AUTO) 5.2 K/uL (1.8-8.9); NEUTROPHILS % (AUTO) 75.8 % (43.0-81.0); PLATELET COUNT (AUTO) 258 K/uL (150-450); RED BLOOD CELL COUNT(AUTO) 3.84 MIL/uL (4.0-5.2); RED CELL DISTRIBUTION WIDTH 19.2 % (11.5-15.0); WHITE BLOOD COUNT (AUTO) 6.8 K/uL (4.3-11.0)
[2024-07-05 06:59] LABS: CALCIUM, SERUM 8.5 mg/dL (8.5-10.1); CREATININE 0.7 mg/dL (0.6-1.3); MAGNESIUM 1.6 mg/dL (1.8-2.4); POTASSIUM 3.6 mmol/L (3.5-5.1)
[2024-07-05 08:00] VITALS: BP 155/82; TEMP 97.5; O2SAT 100
[2024-07-05] MEDS: Magnesium 1GM/D5W 100ML PREMIX 100 ML IV SCH (09:41)
[2024-07-05 12:00] VITALS: BP 145/81; TEMP 98.3; O2SAT 99
[2024-07-05 16:00] VITALS: BP 140/69; TEMP 97.9; O2SAT 100
[2024-07-05 16:34] VITALS: BP 143/53; TEMP 98.4; O2SAT 97
[2024-07-06 07:38] LABS: CALCIUM, SERUM 8.7 mg/dL (8.5-10.1); CREATININE 0.6 mg/dL (0.6-1.3); MAGNESIUM 1.9 mg/dL (1.8-2.4); PHOSPHORUS 3.4 mg/dL (2.5-4.9)
[2024-07-06 08:25] LABS: BASOPHILS % (AUTO) 0.4 % (0.0-2.0); EOSINOPHILS % (AUTO) 0.5 % (0.0-6.0); HEMATOCRIT 32 % (33-45); HEMOGLOBIN 10.5 g/dL (11.5-14.8); LYMPHOCYTES # (AUTO) 1.7 K/uL (0.8-4.8); LYMPHOCYTES % (AUTO) 25.4 % (20.0-44.0); MEAN CORPUSCULAR HEMOGLOBIN 29 PG (26.0-33.0); MEAN CORPUSCULAR HGB CONC 33 g/dl (31.0-36.0); MEAN CORPUSCULAR VOLUME 88 fL (82-100); MONOCYTES # (AUTO) 0.4 K/uL (0.1-1.30); MONOCYTES % (AUTO) 6.4 % (2.0-12.0); NEUTROPHILS # (AUTO) 4.5 K/uL (1.8-8.9); NEUTROPHILS % (AUTO) 67.3 % (43.0-81.0); PLATELET COUNT (AUTO) 234 K/uL (150-450); RED BLOOD CELL COUNT(AUTO) 3.66 MIL/uL (4.0-5.2); RED CELL DISTRIBUTION WIDTH 19.3 % (11.5-15.0); WHITE BLOOD COUNT (AUTO) 6.6 K/uL (4.3-11.0)
[2024-07-06] MEDS ORDERED: IV 1/2NS 1000 ML 1,000 ML IV PRN (10:00)
[2024-07-06] MEDS: POTASSIUM CL. PREMIX PERIPHER. 50 ML IV SCH (10:14)
[2024-07-06] MEDS ORDERED: PIPE3.379 IV (11:01)
[2024-07-06 11:07] LABS: ALBUMIN 1.7 g/dL (3.4-5.0); BILIRUBIN,DIRECT 0.1 mg/dL (0.0-0.2); BILIRUBIN,TOTAL 0.3 mg/dL (0.2-1.0); TOTAL PROTEIN, SERUM 5.9 g/dL (6.4-8.2)
== END 2024-07-06 14:42 | DRG 698 ==
LOC: ER 15:55 → MS IN 21:49 → TELE1 07-03 11:09 → MEDSG1 07-05 12:57
PROVIDERS: ADMIT Student in an Organized Health Care Education/Training Program; ATTEND Nurse Practitioner Acute Care
PROC: 06HM33Z Insertion of Infusion Device into Right Femoral Vein, Percutaneous Approach (ICD-10-PCS; principal; 2024-07-02)
PROC: B54BZZA Ultrasonography of Right Lower Extremity Veins, Guidance (ICD-10-PCS; 2024-07-02)
DX: T83.510A Infection and inflammatory reaction due to cystostomy catheter, initial encounter (principal); A41.9 Sepsis, unspecified organism; R65.21 Severe sepsis with septic shock; K80.40 Calculus of bile duct with cholecystitis, unspecified, without obstruction; E44.0 Moderate protein-calorie malnutrition; E87.20 Acidosis, unspecified; E87.1 Hypo-osmolality and hyponatremia; E87.0 Hyperosmolality and hypernatremia; Y83.3 Surgical operation with formation of external stoma as the cause of abnormal reaction of the patient, or of later complication, without mention of misadventure at the time of the procedure; Y92.129 Unspecified place in nursing home as the place of occurrence of the external cause; K29.70 Gastritis, unspecified, without bleeding; K29.80 Duodenitis without bleeding; K52.9 Noninfective gastroenteritis and colitis, unspecified; Z87.19 Personal history of other diseases of the digestive system; E78.5 Hyperlipidemia, unspecified; E11.9 Type 2 diabetes mellitus without complications; Z88.8 Allergy status to other drugs, medicaments and biological substances; N20.0 Calculus of kidney; Z79.899 Other long term (current) drug therapy; Z87.891 Personal history of nicotine dependence; N63.10 Unspecified lump in the right breast, unspecified quadrant; D75.839 Thrombocytosis, unspecified; D64.9 Anemia, unspecified; E87.5 Hyperkalemia; F32.9 Major depressive disorder, single episode, unspecified; E88.09 Other disorders of plasma-protein metabolism, not elsewhere classified; E87.6 Hypokalemia; F29 Unspecified psychosis not due to a substance or known physiological condition; I10 Essential (primary) hypertension; R74.01 Elevation of levels of liver transaminase levels
CPT/HCPCS: 36415; 71045-TC; 74181-TC; 76642-RT-TC; 80048-TC; 80076-TC; 81001; 83605-TC; 83690-TC; 83735-TC; 84100-TC; 84484-TC; 85025-TC; 85730-TC; 87040-TC; 87081-TC; 87086-TC; A4223; G0378; J2270; J2405; J2470; J2543; J3475; J3480; J7030; J7050; J7060; Q9967

== ENCOUNTER 2024-08-23 04:40 | Inpatient (IN) | payer MEDICARE, OTHER ==
[~2024-08-23] VITALS: Ht 152.4 cm; Wt 63.5 kg
[2024-08-23 04:21] VITALS: BP 115/76; TEMP 97.9; O2SAT 98
[~2024-08-23 04:40] MED LIST changes: +ARGI1POW13 PO; -CRAN400C PO; +HYDR-4303 PO; -MAGN200T5 PO; +MAGN400T52 PO; -MELO-105 PO; +MULT-213 PO; +PIPE3.379 IV; -ZINC454O5 TP
[2024-08-23 07:00] VITALS: BP 103/73; TEMP 98.1; O2SAT 90
[2024-08-23] MEDS ORDERED: Z GUARD REMEDY 4 OZ OINT TP PRN (07:00)
[2024-08-23] MEDS ORDERED: ONDANSETRON HCL/PF 4 MG/2 ML VIAL IVP PRN (07:00)
[2024-08-23] MEDS ORDERED: ACETAMINOPHEN 325 MG TABLET PO PRN (07:00)
[2024-08-23] MEDS ORDERED: MAG HYDROX/AL HYDROX/SIMETH 30 ML UDC PO PRN (07:00)
[2024-08-23] MEDS ORDERED: MAGNESIUM HYDROXIDE 30 ML UDC PO PRN (07:00)
[2024-08-23] MEDS ORDERED: IV NS 0.9% 1,000 ML BAG IV PRN ×3 (07:30→19:30)
[2024-08-23] MEDS: PIPERACI/TAZO 3.375GM/D5W 50ML PB IV ONE (07:33)
[2024-08-23] MEDS: MULTIVIT W/MINERALS 1 TAB TABLET PO SCH (09:00)
[2024-08-23] MEDS: DIVALPROEX SODIUM 250 MG TABLET.DR PO SCH (09:00)
[2024-08-23] MEDS ORDERED: MEGE400O6 PO (09:34)
[2024-08-23] MEDS ORDERED: DIATR MEGLU/DIATRIZOATE SODIUM 120 ML BOTTLE (GASTROGRAPHIN) ONE ×2 (10:18→17:15)
[2024-08-23 13:05] LABS: PLATELET COUNT (AUTO) 573 K/uL (150-450); RED BLOOD CELL COUNT(AUTO) 3.91 MIL/uL (4.0-5.2); RED CELL DISTRIBUTION WIDTH 16.9 % (11.5-15.0); WHITE BLOOD COUNT (AUTO) 22.0 K/uL (4.3-11.0)
[2024-08-23 13:08] LABS: CALCIUM, SERUM 9.1 mg/dL (8.5-10.1); CREATININE 0.7 mg/dL (0.6-1.3); SODIUM SERUM 140.0 mmol/L (136-145); UREA NITROGEN, BLOOD 21.0 mg/dL (7-18)
[2024-08-23 13:13] LABS: ASPARTATE AMINOTRANSFERASE 17.0 U/L (15-37); TOTAL PROTEIN, SERUM 6.7 g/dL (6.4-8.2)
[2024-08-23 13:16] LABS: LACTIC ACID 0.8 mmol/L (0.4-2.0)
[2024-08-23 16:00] VITALS: BP 107/69; TEMP 98.1; O2SAT 96
[2024-08-23 20:00] VITALS: BP 124/75; TEMP 98.2; O2SAT 97
[2024-08-23] MEDS ORDERED: DOSING PER PHARMACY-ZOSYN IV 1 EA EA XX PRN (22:00)
[2024-08-23] MEDS: PIPERACILLIN /TAZOBACTAM 3.375 G in IV D5W 50 ML IV ONE (23:18)
[2024-08-24] MEDS: IV NS 0.9% 1,000 ML IV PRN (04:34)
[2024-08-24] MEDS: ZOSYN IVPB 3.375 G in IV D5W 50ml IV SCH (06:23)
[2024-08-24] MEDS: PIPERACI/TAZO 3.375GM/D5W 50ML PB IV ONE (07:34)
[2024-08-24 08:00] VITALS: BP 133/85; TEMP 97.5; O2SAT 100
[2024-08-24 16:00] VITALS: BP 128/67; TEMP 97.5; O2SAT 100
[2024-08-24 21:10] VITALS: BP 114/66; TEMP 97.3; O2SAT 99
[2024-08-25 07:55] LABS: PLATELET COUNT (AUTO) 555 K/uL (150-450); RED BLOOD CELL COUNT(AUTO) 3.83 MIL/uL (4.0-5.2); RED CELL DISTRIBUTION WIDTH 16.7 % (11.5-15.0); WHITE BLOOD COUNT (AUTO) 15.5 K/uL (4.3-11.0)
[2024-08-25 08:00] VITALS: BP 137/102; TEMP 98.4; O2SAT 96
[2024-08-25 08:07] LABS: CALCIUM, SERUM 8.6 mg/dL (8.5-10.1); CREATININE 0.6 mg/dL (0.6-1.3); PHOSPHORUS 2.3 mg/dL (2.5-4.9); UREA NITROGEN, BLOOD 13.0 mg/dL (7-18)
[2024-08-25 08:52] LABS: SODIUM SERUM 148.0 mmol/L (136-145)
[2024-08-25] MEDS: POTASSIUM CL. PREMIX PERIPHER. 50 ML IV SCH (09:49)
[2024-08-25] MEDS: PIPERACILLIN /TAZOBACTAM 3.375 G in IV D5W 100 ML IV SCH (15:05)
[2024-08-25 16:00] VITALS: BP 137/75; TEMP 97.3; O2SAT 100
[2024-08-25] MEDS: K PHOS NEUTRAL 250 MG TABLET PO ONE (16:23)
[2024-08-26 08:00] VITALS: BP 138/69; TEMP 98.2; O2SAT 96
[2024-08-26 09:55] LABS: PLATELET COUNT (AUTO) 573 K/uL (150-450); RED BLOOD CELL COUNT(AUTO) 4.05 MIL/uL (4.0-5.2); RED CELL DISTRIBUTION WIDTH 16.8 % (11.5-15.0); WHITE BLOOD COUNT (AUTO) 13.2 K/uL (4.3-11.0)
[2024-08-26 10:34] LABS: CALCIUM, SERUM 8.8 mg/dL (8.5-10.1); CREATININE 0.7 mg/dL (0.6-1.3); PHOSPHORUS 2.2 mg/dL (2.5-4.9); SODIUM SERUM 149.0 mmol/L (136-145); UREA NITROGEN, BLOOD 7.0 mg/dL (7-18)
[2024-08-26 16:00] VITALS: BP 137/74; TEMP 98; O2SAT 97
[2024-08-26] MEDS: K PHOS NEUTRAL 250 MG TABLET PO ONE (16:14)
[2024-08-26 20:00] VITALS: BP 153/90; TEMP 97.3; O2SAT 95
[2024-08-26] MEDS: ZOLPIDEM TARTRATE 5 MG TABLET PO PRN (21:47)
[2024-08-27 06:55] LABS: PLATELET COUNT (AUTO) 489 K/uL (150-450); RED BLOOD CELL COUNT(AUTO) 3.85 MIL/uL (4.0-5.2); RED CELL DISTRIBUTION WIDTH 16.4 % (11.5-15.0); WHITE BLOOD COUNT (AUTO) 8.8 K/uL (4.3-11.0)
[2024-08-27 07:46] LABS: CALCIUM, SERUM 8.6 mg/dL (8.5-10.1)
[2024-08-27 08:00] VITALS: BP 135/83; TEMP 98.2; O2SAT 99
[2024-08-27 08:20] LABS: CREATININE 0.6 mg/dL (0.6-1.3); PHOSPHORUS 3.2 mg/dL (2.5-4.9); UREA NITROGEN, BLOOD 2.0 mg/dL (7-18)
[2024-08-27 09:01] LABS: SODIUM SERUM 155.0 mmol/L (136-145)
[2024-08-27] MEDS ORDERED: IV D5W 1,000 ML IV PRN (09:30)
[2024-08-27] MEDS: Magnesium 1GM/D5W 100ML PREMIX 100 ML IV SCH (10:07)
[2024-08-27] MEDS: POTASSIUM CL. PREMIX PERIPHER. 50 ML IV SCH (12:27)
[2024-08-27 14:26] LABS: CALCIUM, SERUM 8.5 mg/dL (8.5-10.1); CREATININE 0.7 mg/dL (0.6-1.3); SODIUM SERUM 147.0 mmol/L (136-145); UREA NITROGEN, BLOOD 2.0 mg/dL (7-18)
[2024-08-28 08:12] LABS: APPEARANCE,URINE CLEAR (CLEAR); BLOOD, URINE 2+ Ery/uL (NEGATIVE); LEUKOCYTE ESTERASE ,URINE 3+ (NEGATIVE); NITRITE, URINE NEGATIVE (NEGATIVE); UGLUCOSE NEGATIVE (NEGATIVE)
[2024-08-28 08:22] LABS: ADD URINE CULTURE YES; SQUAMOUS EPITHELIAL CELL,UR 0-2 /HPF (None Seen)
== END 2024-08-27 19:00 | DRG 389 ==
LOC: TELE 04:40 → MED 23:35
PROVIDERS: ADMIT Internal Medicine; ATTEND Nurse Practitioner Acute Care
DX: K56.609 Unspecified intestinal obstruction, unspecified as to partial versus complete obstruction (principal); E44.0 Moderate protein-calorie malnutrition; E87.0 Hyperosmolality and hypernatremia; K29.70 Gastritis, unspecified, without bleeding; F29 Unspecified psychosis not due to a substance or known physiological condition; D64.9 Anemia, unspecified; K29.80 Duodenitis without bleeding; K26.9 Duodenal ulcer, unspecified as acute or chronic, without hemorrhage or perforation; I10 Essential (primary) hypertension; M89.8X9 Other specified disorders of bone, unspecified site; N20.0 Calculus of kidney; Z87.891 Personal history of nicotine dependence; Z88.8 Allergy status to other drugs, medicaments and biological substances; E88.09 Other disorders of plasma-protein metabolism, not elsewhere classified; Z98.890 Other specified postprocedural states; E87.6 Hypokalemia; E78.5 Hyperlipidemia, unspecified; D75.839 Thrombocytosis, unspecified; E83.42 Hypomagnesemia; N63.10 Unspecified lump in the right breast, unspecified quadrant; F32.9 Major depressive disorder, single episode, unspecified; R41.9 Unspecified symptoms and signs involving cognitive functions and awareness; Z79.899 Other long term (current) drug therapy; Z80.9 Family history of malignant neoplasm, unspecified
CPT/HCPCS: 36415; 71045-TC; 74250-TC; 80048-TC; 80053-TC; 81001; 83605-TC; 83735-TC; 84100-TC; 85025-TC; 87086-TC; A4223; G0378; J2543; J3475; J3480; J7030; J7060; Q9963